=== PATIENT | female | born 1970 | race African-American/Black ===

== ENCOUNTER 2023-05-09 16:59 | Emergency (ER) | payer OTHER ==
[~2023-05-09] VITALS: Ht 162.6 cm; Wt 91.8 kg
[2023-05-09] MEDS ORDERED: ACETAMINOPHEN 500 MG TABLET PO ONE (18:00)
[2023-05-09] MEDS ORDERED: IBUPROFEN 600 MG TABLET PO ONE (18:00)
[2023-05-09] MEDS ORDERED: LIDOCAINE 5% TRANSDERMAL PATCH TD ONE (20:15)
[2023-05-09] MEDS ORDERED: LIDO700A15 TP (20:35)
[2023-05-09 20:41] VITALS: BP 137/88; PULSE 71; RESP 18; TEMP 98.3
== END 2023-05-09 20:42 | disposition home or self-care (01) ==
LOC: EMS 17:02
DX: S90.32XA Contusion of left foot, initial encounter (principal); M54.50 Low back pain, unspecified; F12.90 Cannabis use, unspecified, uncomplicated; V89.2XXA Person injured in unspecified motor-vehicle accident, traffic, initial encounter; Y93.89 Activity, other specified; Y92.89 Other specified places as the place of occurrence of the external cause; Y99.8 Other external cause status
CPT/HCPCS: 72131; 99284